=== PATIENT | male | born 1950 | race African-American/Black ===

== ENCOUNTER 2018-11-16 13:41 | Emergency (ER) | payer OTHER ==
[~2018-11-16] VITALS: Ht 180.3 cm; Wt 75.0 kg
[2018-11-16 13:54] VITALS: BP 115/91
[2018-11-16] MEDS ORDERED: TRAZ-219 PO (14:20)
[2018-11-16] MEDS ORDERED: QUET-1 PO (14:20)
[2018-11-16] MEDS ORDERED: MELA3TAB PO (14:20)
== END 2018-11-16 14:48 | disposition home or self-care (01) ==
LOC: ER 13:42
DX: F41.9 Anxiety disorder, unspecified (principal); Z76.0 Encounter for issue of repeat prescription; Z79.899 Other long term (current) drug therapy
CPT/HCPCS: 99283